=== PATIENT | female | born 1995 | race African-American/Black ===

== ENCOUNTER 2017-04-21 12:30 | Emergency (ER) | payer MEDICAID ==
[~2017-04-21] VITALS: Ht 180.3 cm; Wt 63.5 kg
[2017-04-21 12:55] VITALS: BP 106/74
[2017-04-21] MEDS ORDERED: Silver Sulfadiazine Cream 25gm TOPIC ONE ×2 (12:57→13:00)
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
[2017-04-21] MEDS ORDERED: SILVADENE20 GM TP (13:06)
[2017-04-21 13:20] VITALS: BP 106/74
== END 2017-04-21 13:33 | disposition home or self-care (01) ==
LOC: EMR 13:25
DX: T22.211A Burn of second degree of right forearm, initial encounter (principal); T31.0 Burns involving less than 10% of body surface; X12.XXXA Contact with other hot fluids, initial encounter; Y92.89 Other specified places as the place of occurrence of the external cause
CPT/HCPCS: 29260; 99283